=== PATIENT | female | born 1995 | race Caucasian/White ===

== ENCOUNTER 2024-09-26 01:44 | Emergency (ER) | payer OTHER, SELFPAY ==
[2024-09-26 01:49] VITALS: BP 144/102; PULSE 98; TEMP 36.5; O2SAT 96; BMI 36.9
--- NOTE | 2024-09-26 01:56 | ECG_ITS ---
The [facility] Test Date: 2024-09-26 Pat Name: Lisbeth Kyle Department: Room: - Gender: Female Plumber: : 1995 Requested By: [id number] Order Number: [id number] Reading MD: EVAN BARRETT Measurements Intervals [place] Rate: 84 P: 54 AK: 132 QRS: 60 QRSD: 84 T: 47 QT: 346 QTc: 387 Interpretive Statements 1100 Sinus rhythm 9110 normal ECG No previous ECG available for comparison Electronically Signed On 09-26-2024 14:58:25 EST by EVAN BARRETT
--- NOTE | 2024-09-26 01:56 | ED.GENADUL1 ---
HPI HPI - General Adult General Chief complaint: Shortness of Breath/Dyspnea Stated complaint: Rib Pain Shorthness of Breath Time Seen by Provider: 09/26/24 01:45 History of Present Illness HPI narrative: 29-year-old female presents to the emergency department for pain on the left side of her chest, anteriorly. There is been no trauma. She had pneumonia recently and she has had this pain for the last week. There is been no injury. She was seen at an urgent care center and had a chest x-ray for it and was told to go to the emergency department if it got worse. She states that the pneumonia is much better and seems to have resolved. It hurts more in certain positions. Related Data Home Medications ?Medication ?Instructions ?Recorded ?Confirmed albuterol sulfate 90 mcg/actuation 2 puff inhalation Q4H PRN 09/26/24 09/26/24 aerosol inhaler shortness of breath or wheezing control 1 tab PO DAILY 09/26/24 09/26/24 Previous Rx's ?Medication ?Instructions ?Recorded acetaminophen 300 mg-codeine 30 mg 1 tab PO Q6H PRN pain 5 days #20 09/26/24 tablet tabs ibuprofen 800 mg tablet 800 mg PO Q8H PRN pain #20 tabs 09/26/24 Allergies Allergy/AdvReac Type Severity Reaction Status Date / Time No Known Drug Allergies Allergy Verified 09/26/24 01:57 Opioid HPI Opioid Management Most Recent Opioid Data: Last Pain Scale 0 09/26/24 03:44 09/26/24 Last ED Pain Assessment 09/26/24 03:44 Last MAR Pain Assessment 09/26/24 02:33 Review of Systems ROS Narrative A ten point review of systems is negative except as noted above. PFSH PFSH Social History Little interest or pleasure in doing things: not at all Feeling down, depressed, or hopeless: not at all Exam Narrative Exam Narrative: Nurses note and vital signs reviewed and patient is not hypoxic. General: The patient appears mildly uncomfortable Skin: Warm, dry, no pallor noted. There is no rash noted. Head: Normocephalic, atraumatic Eye: Normal conjunctiva, no drainage Ears, Nose, Mouth, and Throat: oral mucosa is moist. Nares patent. Cardiovascular: Regular Rate and Rhythm Respiratory: Patient is in no distress, no accessory muscle use, lungs are clear to auscultation, no wheezing, rales or rhonchi. She has palpable tenderness on the left anterior chest without crepitus bruise rash or abrasion. Old healed surgical scars present from bilateral mastectomy Back: non-tender GI: Soft and nontender Musculoskeletal: The patient has no evidence of calf tenderness, no pitting edema, symmetrical pulses noted bilaterally Neurological: A&O, normal speech Psychiatric: Cooperative Constitutional Vital Signs, click to edit/add: Last Vital Signs Temp 97.7 F 09/26/24 01:49 Pulse 98 H 09/26/24 01:49 Resp 16 09/26/24 02:02 BP 144/102 H 09/26/24 01:49 Pulse Ox 96 09/26/24 01:49 O2 Del Method Room Air 09/26/24 01:49 Course Vital Signs Vital signs: Vital Signs Temperature 97.7 F 09/26/24 01:49 Pulse Rate 98 H 09/26/24 01:49 Respiratory Rate 16 09/26/24 01:49 Blood Pressure 144/102 H 09/26/24 01:49 Pulse Oximetry 96 09/26/24 01:49 Oxygen Delivery Method Room Air 09/26/24 01:49 Temperature 97.7 F 09/26/24 01:49 Pulse Rate 98 H 09/26/24 01:49 Respiratory Rate 16 09/26/24 02:02 Blood Pressure 144/102 H 09/26/24 01:49 Pulse Oximetry 96 09/26/24 01:49 Oxygen Delivery Method Room Air 09/26/24 01:49 Medical Decision Making MDM Narrative Medical decision making narrative: Her workup is negative including D-dimer and chest x-ray. She felt much better after being given IV Toradol. My clinical impression is that she has pleurisy. Treatment diagnosis and follow-up were discussed with the patient. I have no clinical suspicion of pulmonary embolism. Differential Diagnosis Differential Diagnosis: Pleurisy, pneumonia, pneumothorax, PE Lab Data Lab results reviewed: Yes I reviewed the patient's lab results Labs: Lab Results 09/26/24 09/26/24 Range/Units 02:15 02:35 WBC 10.6 (4.0-11.0) 10^3/uL RBC 4.73 (4.20-5.40) 10^6/uL Hgb 13.2 (12.0-16.0) g/dL Hct 39.0 (36.0-48.0) % MCV 82.5 (81.0-99.0) fL MCH 27.9 (26.7-34.0) pg MCHC 33.8 (29.9-35.2) g/dL RDW 14.2 (11.0-15.0) % Plt Count 392 (150-450) 10^3/uL MPV 10.7 (9.5-13.5) fL Neut % (Auto) 46.9 (43.0-75.0) % Lymph % (Auto) 42.1 (20.5-60.0) % [place] % (Auto) 9.3 (1.7-12.0) % Eos % (Auto) 1.1 (0.9-7.0) % Baso % (Auto) 0.4 (0.2-2.0) % Neut # (Auto) 5.0 (1.4-6.5) 10^3/uL Lymph # (Auto) 4.5 H (1.2-3.8) 10^3/uL [place]iken # (Auto) 1.0 H (0.3-0.8) 10^3/uL Eos # (Auto) 0.1 (0.0-0.7) 10^3/uL Baso # (Auto) 0.0 (0.0-0.1) 10^3/uL Abs Immat Gran (auto) 0.02 (0.00-0.03) 10^3/uL Imm/Tot Granulo (auto) 0.2 (0.0-0.5) % D-Dimer <0.19 (<=0.59) mg/L FEU Sodium 137 (136-145) mmol/L Potassium 3.9 (3.5-5.1) mmol/L Chloride 102 (98-107) mmol/L Carbon Dioxide 23.6 (21.0-32.0) mmol/L Anion Gap 15.3 BUN 16.0 (7.0-18.0) mg/dL Creatinine 1.08 H (0.55-1.02) mg/dL Est GFR ( Amer) >60 (>=60 mL/min/1.73m^2) Est GFR (Non-Af Amer) 60 (>=60 mL/min/1.73m^2) BUN/Creatinine Ratio 14.8 Glucose 125 H (74-106) mg/dL Calcium 8.5 (8.5-10.1) mg/dL Imaging Data Chest x-ray: Radiologist's impression: ITS Impressions Chest X-Ray 09/26/24 02:00 IMPRESSION: Negative chest without acute process. This report was generated with voice recognition software. Effort has been made to ensure accuracy of this report, however, occasional wording errors may persist. Please contact our office with any questions. Electronically authenticated by: [employer] CHRISTENSEN Date: 09/26/2024 03:38 ECG Data Attestation: I personally reviewed and interpreted this ECG as follows: (EKG on my interpretation shows normal sinus rhythm with rate of 84 no acute change) Discharge Plan Discharge Chief Complaint: Shortness of Breath/Dyspnea Clinical Impression: Pleurisy Patient Disposition: Home, Self-Care Time of Disposition Decision: 03:45 Condition: Good Mode of Transportation: Private Vehicle Prescriptions / Home Meds: New acetaminophen-codeine 300-30 mg tablet 1 tab PO Q6H PRN (Reason: pain) 5 Days Qty: 20 0RF ibuprofen 800 mg tablet 800 mg PO Q8H PRN (Reason: pain) Qty: 20 0RF No Action albuterol sulfate 90 mcg/actuation HFA aerosol inhaler 2 puff INHALATION Q4H PRN (Reason: shortness of breath or wheezing) control 1 tab PO DAILY Print Language: Croatian Instructions: Pleurisy (ED) Referrals: Ailyn Colvin DO [Primary Care Provider] - 1 week
--- NOTE | 2024-09-26 02:00 | XR_ITS ---
The [address] [address] Patient Name: BETH JAUREGUI MRN: [id number] date: 1995 Sex: F Assigned Patient Location: ED.MAIN Current Patient Location: ED.MAIN Accession/Order Number: [id number] Exam Date: 09/26/2024 02:04 Report Date: 09/26/2024 03:38 At the request of: KELLY FRASER Procedure: XR chest 1V SINGLE VIEW CHEST: 09/26/2024 2:04 AM EST CLINICAL HISTORY:Chest pain COMPARISONS: None. TECHNIQUE: Single frontal view of the chest, utilizing portable technique. Portable radiography should be considered a technically compromised study. Strongly consider dedicated PA and lateral chest radiographs, as clinically indicated. FINDINGS: LINES AND TUBES: None appreciated. CARDIAC SILHOUETTE: Within normal limits. MEDIASTINAL AND HILAR CONTOUR: Within normal limits. PULMONARY PARENCHYMA AND PLEURA: No consolidation, edema, effusion, or pneumothorax. OSSEOUS STRUCTURES:Nothing significant. OTHER COMMENTS:None. XR/XR chest 1V IMPRESSION: Negative chest without acute process. This report was generated with voice recognition software. Effort has been made to ensure accuracy of this report, however, occasional wording errors may persist. Please contact our office with any questions. Electronically authenticated by: [employer] CHRISTENSEN Date: 09/26/2024 03:38
[2024-09-26 02:08] VITALS: PULSE 84
[2024-09-26 02:23] LABS: Basophils Percent Auto 0.4 % (0.2-2.0); Eosinophils Absolute Auto 0.1 10^3/uL (0.0-0.7); Eosinophils Percent Auto 1.1 % (0.9-7.0); Hemoglobin 13.2 g/dL (12.0-16.0); Immature Granulocytes Abs Auto 0.02 10^3/uL (0.00-0.03); Immature Granulocytes Pct Auto 0.2 % (0.0-0.5); Lymphocytes Absolute Auto 4.5 10^3/uL (1.2-3.8); Lymphocytes Percent Auto 42.1 % (20.5-60.0); Mean Corpuscular HGB Conc 33.8 g/dL (29.9-35.2); Mean Corpuscular Hemoglobin 27.9 pg (26.7-34.0); Mean Corpuscular Volume 82.5 fL (81.0-99.0); Mean Platelet Volume 10.7 fL (9.5-13.5); Monocytes Percent Auto 9.3 % (1.7-12.0); Neutrophils Percent Auto 46.9 % (43.0-75.0); Platelet Count 392 10^3/uL (150-450); Red Blood Count 4.73 10^6/uL (4.20-5.40); Red Cell Distribution Width 14.2 % (11.0-15.0); White Blood Count 10.6 10^3/uL (4.0-11.0)
[2024-09-26 02:30] LABS: Anion Gap 15.3; BUN Creatinine Ratio 14.8; Calcium 8.5 mg/dL (8.5-10.1); Carbon Dioxide 23.6 mmol/L (21.0-32.0); Chloride 102 mmol/L (98-107); Estimated GFR (African America >60 (>=60 mL/min/1.73m^2); Estimated GFR (Non-African Ame 60 (>=60 mL/min/1.73m^2); Glucose 125 mg/dL (74-106); Potassium 3.9 mmol/L (3.5-5.1); Sodium 137 mmol/L (136-145)
[2024-09-26] MEDS: KETOROLAC TROMETHAMINE 30 MG/ML VIAL IVP (02:33)
[2024-09-26 02:54] LABS: D Dimer <0.19 mg/L FEU (<=0.59)
[2024-09-26 03:58] VITALS: BP 117/82; PULSE 89; O2SAT 97
== END 2024-09-26 04:02 | disposition home or self-care (01) ==
PROVIDERS: Emergency Provider Emergency Medicine; Family Provider Pediatrics; PCP Family Medicine
DX: R09.1 Pleurisy (principal); Z87.01 Personal history of pneumonia (recurrent); Z90.13 Acquired absence of bilateral breasts and nipples
CPT/HCPCS: 36415; 71045; 80048; 85025; 85378; 93005; 96374; 99285; J1885